=== PATIENT | male | born 1985 | race Caucasian/White ===

== ENCOUNTER 2021-09-26 22:20 | Emergency (ER) | payer OTHER ==
[~2021-09-26] VITALS: Ht 180.3 cm; Wt 88.5 kg
[~2021-09-26 22:20] MED LIST: ADDERALL 15 MG15 MG; COLACE 100 MG100 MG PO; DESYREL50 MG; FLEXERIL PO; NORCO 7.5-3251 EACH; PAXIL; PERCOCET 5-3251 EACH PO; TRAZODONE 150150 M1; XANAX XR1 MG
[2021-09-27 00:29] VITALS: BP 130/86
== END 2021-09-27 00:29 | disposition home or self-care (01) ==
LOC: M.ERS 22:20
DX: S93.401A Sprain of unspecified ligament of right ankle, initial encounter (principal); F17.210 Nicotine dependence, cigarettes, uncomplicated; Z79.899 Other long term (current) drug therapy; X50.1XXA Overexertion from prolonged static or awkward postures, initial encounter; Y93.89 Activity, other specified; Y92.89 Other specified places as the place of occurrence of the external cause; Y99.8 Other external cause status